=== PATIENT | male | born 1960 | race Caucasian/White ===

== ENCOUNTER 2019-03-16 14:55 | Emergency (ER) | payer BC ==
[~2019-03-16] VITALS: Ht 190.5 cm; Wt 95.3 kg
[2019-03-16] MEDS ORDERED: DIPH25CA83 PO (15:04)
--- NOTE | 2019-03-16 15:22 | NUR ---
PT IS IN ROOM #2A. DR CHAVEZ EVALUATED THE PT.
[2019-03-16 15:29] LABS: BASOPHILS # (AUTO) 0.1 K/uL (0.0-8.0); BASOPHILS % (AUTO) 0.9 % (0.0-2.0); EOSINOPHILS % (AUTO) 0.4 % (0.0-7.0); HEMATOCRIT 46.1 % (36.7-47.1); HEMOGLOBIN 15.4 g/dL (12.5-16.3); LYMPHOCYTES # (AUTO) 1.7 K/uL (20.0-40.0); LYMPHOCYTES % (AUTO) 19.6 % (20.5-51.5); MEAN CORPUSCULAR HEMOGLOBIN 29.1 uug (23.8-33.4); MEAN CORPUSCULAR HGB CONC 34 g/dL (32.5-36.3); MEAN CORPUSCULAR VOLUME 87.1 fL (73.0-96.2); MONOCYTES # (AUTO) 0.6 K/uL (2.0-10.0); MONOCYTES % (AUTO) 7.3 % (0.0-11.0); NEUTROPHILS # (AUTO) 6.1 K/uL (1.8-8.9); NEUTROPHILS % (AUTO) 71.8 % (38.5-71.5); PLATELET COUNT (AUTO) 349 K/uL (152-348); WHITE BLOOD COUNT (AUTO) 8.5 K/uL (3.6-10.2)
--- NOTE | 2019-03-16 17:35 | NUR ---
PT DECIDED TO LEAVE HOSPITAL AMA. DR CHAVEZ EXPLAINED ALL RISKS OF LEAVING HOSPITAL AMA. PT VERBALISED FULL UNDERSTANDING. PT SIGNED AMA FORM AND LEFT HOSPITAL WITH HIS . NO S/S OF ACUTE DISTRESS. PT DENIES PAIN. NO SOB. NO N/V.
[2019-03-16 17:38] VITALS: BP 128/73
== END 2019-03-16 17:39 | disposition left against medical advice (07) ==
LOC: ER 14:55
DX: R07.9 Chest pain, unspecified (principal); R61 Generalized hyperhidrosis; J45.909 Unspecified asthma, uncomplicated; Z90.49 Acquired absence of other specified parts of digestive tract; Z88.0 Allergy status to penicillin; Z79.899 Other long term (current) drug therapy
CPT/HCPCS: 36415; 70030-TC; 71045; 85025; 93005; A4663